=== PATIENT | female | born 1950 | race Caucasian/White ===

== ENCOUNTER 2021-03-10 05:38 | Inpatient (IN) ==
[2021-03-10] MEDS ORDERED: FAMOTIDINE 20 MG TABLET PO ONE (06:00)
[2021-03-10] MEDS ORDERED: GABAPENTIN 400 MG CAPSULE PO ONE (06:00)
[2021-03-10] MEDS ORDERED: ACETAMINOPHEN 500 MG TABLET PO ONE (06:00)
[2021-03-10] MEDS ORDERED: VANCOMYCIN INJ 1,000 MG in SODIUM CHLORIDE 0.9% 250 ML IV ONE (06:00)
[2021-03-10] MEDS ORDERED: CLINDAMYCIN INJ 900 MG/50 ML PREMIX IV ONE (06:00)
[2021-03-10] MEDS ORDERED: DIAZEPAM 5 MG TABLET PO ONE (06:22)
[2021-03-10] MEDS ORDERED: DEXAMETHASONE 4 MG/1 ML VIAL ONE (06:25)
[2021-03-10] MEDS ORDERED: ROPIVACAINE 0.5% 30 ML VIAL ONE (06:25)
[2021-03-10] MEDS ORDERED: LIDOCAINE 1% 5 ML VIAL ONE (06:25)
[2021-03-10] MEDS ORDERED: ONDANSETRON 4 MG/2 ML VIAL ONE (06:29)
[2021-03-10] MEDS ORDERED: LIDOCAINE 2% 5 ML VIAL ONE (06:29)
[2021-03-10] MEDS ORDERED: BUPIVACAINE SPINAL 0.75% 2 ML AMP SPINAL ONE ×2 (06:29→06:37)
[2021-03-10] MEDS ORDERED: propofoL 200 MG/20 ML VIAL IV ONE (06:29)
[2021-03-10] MEDS ORDERED: MIDAZOLAM 2 MG/2 ML VIAL ONE (06:30)
[2021-03-10] MEDS ORDERED: fentaNYL 100 MCG/2 ML VIAL ONE (06:30)
[2021-03-10] MEDS ORDERED: PHENYLEPHRINE 10 MG/1 ML VIAL IV ONE (06:30)
[2021-03-10] MEDS ORDERED: SODIUM CHLORIDE 0.9% 100 ML IV ONE ×2 (06:30→06:32)
[2021-03-10] MEDS ORDERED: LACTATED RINGERS 1,000 ML IV SCH (07:00)
[2021-03-10] MEDS ORDERED: LACTULOSE 20 GM/30 ML UDCUP PO PRN (07:07)
[2021-03-10] MEDS ORDERED: ONDANSETRON 4 MG/2 ML VIAL IV PRN (07:07)
[2021-03-10] MEDS ORDERED: PROMETHAZINE 25 MG/1 ML VIAL IM PRN (07:07)
[2021-03-10] MEDS ORDERED: diphenhydrAMINE CAP 25 MG CAPSULE PO PRN (07:07)
[2021-03-10] MEDS ORDERED: MAGNESIUM HYDROXIDE SUSP 30 ML UDCUP PO PRN (07:07)
[2021-03-10] MEDS ORDERED: BISACODYL 10 MG SUPP RECTAL PRN (07:07)
[2021-03-10] MEDS ORDERED: GLUCAGON 1 MG VIAL IM PRN (07:10)
[2021-03-10] MEDS ORDERED: DEXTROSE 50% 25 GM/50 ML VIAL IV PRN (07:10)
[2021-03-10] MEDS ORDERED: clonazePAM 0.5 MG TABLET PO PRN (07:10)
[2021-03-10] MEDS ORDERED: TRANEXAMIC ACID 1,000 MG/10 ML VIAL ONE (07:34)
[2021-03-10] MEDS ORDERED: CHOLECALCIFEROL 1,000 UNIT TABLET PO SCH (09:00)
[2021-03-10] MEDS: INSULIN REGULAR 100 UNIT/ML SUBCUT SCH ×4 (11:00→22:43)
[2021-03-10] MEDS: ESTRADIOL 1MG PO SCH ×2 (12:33→12:35)
[2021-03-10] MEDS: CLINDAMYCIN INJ 900 MG/50 ML PREMIX IV SCH ×2 (14:35→22:42)
[2021-03-10] MEDS: METFORMIN 500MG PO SCH (16:48)
[2021-03-10] MEDS: MORPHINE 4 MG/1 ML VIAL IV PRN ×2 (16:48→22:41)
[2021-03-10] MEDS: DOCUSATE SODIUM 100 MG CAPSULE PO SCH (20:17)
[2021-03-10] MEDS: FONDAPARINUX 2.5 MG/0.5 ML SYRINGE SUBCUT SCH (20:17)
[2021-03-10] MEDS: ASPIRIN EC 81 MG TABLET PO SCH (20:17)
[2021-03-10] MEDS: FOLIC ACID 0.8 MG PO SCH (20:17)
[2021-03-10] MEDS: IRBESARTAN 300MG PO SCH (20:18)
[2021-03-11] MEDS: MORPHINE 4 MG/1 ML VIAL IV PRN ×2 (04:43→21:55)
[2021-03-11 05:36] LABS: Basophils % 0.4 % (0.0-0.8); Eosinophils % 0.1 % (0.00-10.9); Hematocrit 30.8 VOL% (35.7-47.0); Hemoglobin 10.4 GM/DL (12.0-16.0); Immature Granulocytes % 0.3 %; Immature Granulocytes Absolute 0.03 #; Lymphocytes # 2.3 10*3/uL (1.4-4.0); Lymphocytes % 20.8 % (21.3-54.2); Mean Corpuscular HGB Conc 33.8 GM/DL (32-36); Mean Corpuscular Volume 96.6 FL (87-102); Mean Platelet Volume 12.3 FL (9.6-12.0); Monocytes % 10.1 % (1.7-12.7); Neutrophils % 68.3 % (38.7-73.9); Platelet Count 157 T/CUMM (130-400); Red Blood Count 3.19 MC/CUMM (3.8-5.5); Red Cell Distribution Width 12.4 % (9.3-17.3); White Blood Count 10.9 T/CUMM (4-12)
[2021-03-11 05:59] LABS: Hypochromasia 1+; Microcytosis 1+; Platelet Estimate Adequate
[2021-03-11 06:01] LABS: Calcium 8.6 MG/DL (8.5-10.1)
[2021-03-11] MEDS: INSULIN REGULAR 100 UNIT/ML SUBCUT SCH ×4 (08:13→20:13)
[2021-03-11] MEDS: ESTRADIOL 1MG PO SCH (09:07)
[2021-03-11] MEDS: CHOLECALCIFEROL 1000 UNIT PO SCH (09:07)
[2021-03-11] MEDS: METFORMIN 500MG PO SCH ×2 (09:07→16:46)
[2021-03-11] MEDS: CHLORTHALIDONE 25MG TAB PO SCH (09:07)
[2021-03-11] MEDS: DOCUSATE SODIUM 100 MG CAPSULE PO SCH ×2 (09:07→20:12)
[2021-03-11] MEDS: FOLIC ACID 0.8 MG PO SCH (20:12)
[2021-03-11] MEDS: IRBESARTAN 300MG PO SCH (20:12)
[2021-03-11] MEDS: FONDAPARINUX 2.5 MG/0.5 ML SYRINGE SUBCUT SCH (20:12)
[2021-03-11] MEDS: ASPIRIN EC 81 MG TABLET PO SCH (20:13)
[2021-03-12] MEDS: MORPHINE 4 MG/1 ML VIAL IV PRN ×2 (01:57→09:23)
[2021-03-12] MEDS: INSULIN REGULAR 100 UNIT/ML SUBCUT SCH ×4 (07:20→20:36)
[2021-03-12] MEDS: METFORMIN 500MG PO SCH ×2 (09:05→16:48)
[2021-03-12] MEDS: DOCUSATE SODIUM 100 MG CAPSULE PO SCH ×2 (09:05→20:35)
[2021-03-12] MEDS: CHLORTHALIDONE 25MG TAB PO SCH (09:06)
[2021-03-12] MEDS: CHOLECALCIFEROL 1000 UNIT PO SCH (09:06)
[2021-03-12] MEDS: ESTRADIOL 1MG PO SCH (09:32)
[2021-03-12] MEDS: FONDAPARINUX 2.5 MG/0.5 ML SYRINGE SUBCUT SCH (20:35)
[2021-03-12] MEDS: IRBESARTAN 300MG PO SCH (20:35)
[2021-03-12] MEDS: FOLIC ACID 0.8 MG PO SCH (20:36)
[2021-03-12] MEDS: ASPIRIN EC 81 MG TABLET PO SCH (20:39)
[2021-03-13] MEDS: INSULIN REGULAR 100 UNIT/ML SUBCUT SCH (08:31)
[2021-03-13] MEDS: CHLORTHALIDONE 25MG TAB PO SCH (08:59)
[2021-03-13] MEDS: ESTRADIOL 1MG PO SCH (08:59)
[2021-03-13] MEDS: DOCUSATE SODIUM 100 MG CAPSULE PO SCH (09:00)
[2021-03-13] MEDS: METFORMIN 500MG PO SCH (09:00)
[2021-03-13] MEDS: CHOLECALCIFEROL 1000 UNIT PO SCH (09:00)
[2021-03-13 11:24] VITALS: BP 120/44
== END 2021-03-13 11:50 | disposition home health service (06) | DRG 470 ==
LOC: N.SDSINP 05:38 → N.OR 05:38 → N.SDSINP 05:41 → N.3E 07:07
PROVIDERS: ADMIT Orthopaedic Surgery; ATTEND Orthopaedic Surgery